=== PATIENT | female | born 1980 | race Caucasian/White ===

== ENCOUNTER → 2021-11-24 11:12 | Outpatient (CLI) | payer BC, SELFPAY ==
--- NOTE | ~2021-11-24 | US_ITS ---
EXAMINATION: US transvaginal DATE: 11/24/2021 11:39 INDICATION: Missing IUD strings TECHNIQUE: Multiple endovaginal sonographic images of the pelvis were obtained. COMPARISON: 07/29/2016 FINDINGS: The uterus measures 7.8 x 4.6 x 4.5 cm. The IUD appears to be in expected position. The end ometrial complex measures 5 mm. The right ovary measures 2.1 x 1.2 x 1.8 cm. The left ovary measures 2.3 x 1.3 x 1 cm. There is normal vascular flow in the ovaries. There is no free fluid in the pelvis. IMPRESSION: 1. IUD in expected position. Reviewed, dictated and finalized at location B. 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
== END ==
PROVIDERS: Visit Provider Nurse Practitioner
DX: T83.32XA Displacement of intrauterine contraceptive device, initial encounter (principal)
CPT/HCPCS: 76830

== ENCOUNTER → 2022-01-14 07:21 | Outpatient (CLI) | payer BC, SELFPAY ==
--- NOTE | ~2022-01-14 | MM_ITS ---
EXAMINATION: MM screening karma BI w marsha HISTORY: Screening TECHNIQUE: Craniocaudal and mediolateral oblique 3-D tomosynthesis images were obtained and synthetic 2-D images were generated. CAD analysis was submitted and interpreted. COMPARISON: No prior mammogram is available for comparison at this institution. BREAST PARENCHYMAL COMPOSITION: There are scattered areas of fibroglandular density. FINDINGS: There is no evidence of suspicious mass, calcification, or architectural distortion to sugg est malignancy in either breast. There has been no suspicious interval change. IMPRESSION: 1. No mammographic evidence of malignancy. 2. Recommend routine screening mammography in one year. BI-RADS Category 1: Negative Reviewed, dictated and finalized at location A.
== END ==
PROVIDERS: PCP Internal Medicine; Visit Provider Nurse Practitioner
DX: Z12.31 Encounter for screening mammogram for malignant neoplasm of breast (principal)
CPT/HCPCS: 77063; 77067

== ENCOUNTER 2023-08-26 10:06 | Outpatient (CLI) | payer BC, SELFPAY ==
[2023-08-26 12:55] LABS: Alanine Aminotransferase 23 U/L (6-35); Albumin Level 4.3 g/dL (3.5-5.1); Alkaline Phosphatase 75 U/L (38-126); Anion Gap 8 mmol/L (8-16); Aspartate Amino Transferase 43 U/L (14-36); Bilirubin,Total 0.7 mg/dL (0.2-1.3); Blood Urea Nitrogen 13 mg/dL (7-17); Calcium 9.2 mg/dL (8.4-10.2); Carbon Dioxide 25 mmol/L (22-30); Chloride 104 mmol/L (98-107); Cholesterol 231 mg/dL (0-200); Estimated Glomerular Filt Rate 60; Glucose 107 mg/dL (65-110); HDL Direct 40 mg/dL; Potassium 4.1 mmol/L (3.4-5.0); Sodium 137 mmol/L (137-145); Triglycerides 119 mg/dL (<150)
[2023-08-26 13:07] LABS: LDL Cholesterol Direct 145 mg/dL
[2023-08-26 13:31] LABS: Hemoglobin A1C 5.6 % (<5.7)
== END 2023-08-26 10:07 | disposition home or self-care (01) ==
LOC: ANHGOSHLAB 10:08
PROVIDERS: PCP Family Medicine; Visit Provider Family Medicine
DX: R73.03 Prediabetes (principal); E78.2 Mixed hyperlipidemia
CPT/HCPCS: 36415; 80053; 80061; 83036

== ENCOUNTER 2023-11-22 14:52 | Outpatient (CLI) | payer BC, SELFPAY ==
[2023-11-22 19:05] LABS: Alanine Aminotransferase 26 U/L (6-35); Albumin Level 4.5 g/dL (3.5-5.1); Alkaline Phosphatase 74 U/L (38-126); Aspartate Amino Transferase 59 U/L (14-36); Bilirubin,Total 0.5 mg/dL (0.2-1.3)
== END 2023-11-22 14:53 | disposition home or self-care (01) ==
LOC: ANHGOSHLAB 14:56
PROVIDERS: PCP Family Medicine; Visit Provider Family Medicine
DX: R79.89 Other specified abnormal findings of blood chemistry (principal)
CPT/HCPCS: 36415; 80076

== ENCOUNTER 2024-04-18 09:03 | Outpatient (CLI) | payer BC, SELFPAY ==
[2024-04-18 13:17] LABS: Alanine Aminotransferase 23 U/L (6-35); Albumin Level 4.4 g/dL (3.5-5.1); Alkaline Phosphatase 75 U/L (38-126); Anion Gap 9 mmol/L (4-12); Aspartate Amino Transferase 49 U/L (14-36); Bilirubin,Total 0.7 mg/dL (0.2-1.3); Blood Urea Nitrogen 12 mg/dL (7-17); Calcium 9.4 mg/dL (8.4-10.2); Carbon Dioxide 27 mmol/L (22-30); Chloride 100 mmol/L (98-107); Estimated Glomerular Filt Rate 54; Glucose 113 mg/dL (65-110); Potassium 4.1 mmol/L (3.4-5.0); Sodium 136 mmol/L (137-145)
[2024-04-18 14:52] LABS: Hepatitis B Surface Antigen Negative (Negative)
[2024-04-18 14:58] LABS: HAV RESULT Negative (Negative); Hepatitis B Core IgM Result Negative (Negative)
[2024-04-18 15:10] LABS: Hepatitis C Virus Antibody Negative (Negative)
== END 2024-04-18 09:04 | disposition home or self-care (01) ==
LOC: ANHGOSHLAB 09:05
PROVIDERS: PCP Family Medicine; Visit Provider Family Medicine
DX: R79.89 Other specified abnormal findings of blood chemistry (principal)
CPT/HCPCS: 36415; 80053; 80074; 82248

== ENCOUNTER 2024-10-27 08:51 | Outpatient (CLI) | payer BC, SELFPAY ==
--- NOTE | ~2024-10-27 | MM_ITS ---
EXAMINATION: MM screening karma BI w marsha HISTORY: Screening TECHNIQUE: Craniocaudal and mediolateral oblique 3-D tomosynthesis images were obtained and synthetic 2-D images were generated. CAD analysis was submitted and interpreted. COMPARISON: 01/14/2022 BREAST PARENCHYMAL COMPOSITION: Not dense: There are scattered areas of fibroglandular density. FINDINGS: The left breast is stable without evidence for malignancy. There is a developing asymmetry medially in the right breast on CC view, anterior third. IMPRESSION: 1. Developing right breast asymmetry. 2. Additional mammographic views and possible breast ultrasound are recommended. BI-RADS Category 0: Incomplete: Needs additional imaging evaluation. Reviewed, dictated and finalized at location B. 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 Developing right breast asymmetry. 2. Additional mammographic views and possible breast ultrasound are recommended . BI-RADS Category 0: Incomplete: Needs additional imaging evaluation.
== END 2024-10-27 08:52 | disposition home or self-care (01) ==
LOC: MICIMG 08:53
PROVIDERS: PCP Family Medicine; Visit Provider Obstetrics & Gynecology Gynecology
DX: Z12.31 Encounter for screening mammogram for malignant neoplasm of breast (principal); R92.8 Other abnormal and inconclusive findings on diagnostic imaging of breast
CPT/HCPCS: 77063; 77067

== ENCOUNTER 2024-11-07 00:23 | Day surgery (SDC) | payer BC, SELFPAY ==
[2024-10-23 10:19] VITALS: BMI 40.3
--- OUTSIDE RECORDS SUMMARY | 2024-11-07 00:26 | XMS_ITS | Clinical Summary ---
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 Name Role Phone Unavailable Primary Care Provider Unavailabl e Social History Tobacco Use Types Packs/Day Years Used Date Smoking Tobacco: Never Assessed Comments Unknown Sex and Gender Information Value Date Recorded Sex Assigned at Not on file Legal Sex Female 6:38 PM CDT Gender Identity Not on file Sexual Orientation Not on file Plan of Treatment Health Maintenance Due Date Last Done Comments Cervical Cancer Screening Pa p Smear (Age 30 to 64) Every 3 Years 1978 Colorectal Cancer Screening Colonoscopy (10 Years) 1978 Annual Physical 1981 Hepatitis C 1996 DTaP, Tdap and Td Vaccines ( 1 - Tdap) 1997 Hepatitis B Vaccines (1 of 3 - 19+ 3-dose series) 1997 Cervical Cancer Screening Pa p with HPV Testing (Age 30 to 64) Every 5 Years 2008 Cervical Cancer Screening with HPV 2008 Mammogram Screening 2018 COVID-19 Vaccine (2023-2 5 season) 2024 Influenza Adult (#1) 2024 Meningococcal B Vaccine Aged Out No l onger eligible based on patient's age to complete this topic Meningococcal Vaccine Aged Out No natali ollie eligible based on patient's age to complete this topic Pneumococcal Vaccine: Pediat rics (0 to 5 Years) and At-Risk Patients (6 to 64 Years) Aged Out No longer eligible b ased on patient's age to complete this topic RSV Immunizations Under 20 Months Aged Out No longer eligible based on patient's age to complete this topic
[2024-11-07 08:26] VITALS: BP 137/93; PULSE 71; RESP 18; TEMP 36.3; O2SAT 99; BMI 41.2
[2024-11-07] MEDS: LACTATED RINGERS 1,000 ML 150 ML IV CONT (08:32)
[2024-11-07 08:33] LABS: BEDSIDEPREGUCG Negative (Negative)
--- NOTE | 2024-11-07 09:07 | P.PNAN_ITS ---
Anes - Initial Pre Proc Eval Procedure: Operation Date: 11/07/24 09:30 Proposed Procedures p Screening Colonoscopy - Barak Wilson MD Date/Time: 11/07/24 09:07 Surgeon: Barak Wilson MD Pre Op Diagnosis: screening colon Patient Data Age: 44 Gender: F Height: 1.63 m Weight: 108.9 kg Last Vital Signs Temp 97.4 F L 11/07/24 08:26 Pulse 71 11/07/24 08:26 Resp 71 H 11/07/24 08:26 BP 137/93 H 11/07/24 08:26 Pulse Ox 99 11/07/24 08:26 O2 Del Method Room Air 11/07/24 08:26 Allergies Allergy/AdvReac Type Severity Reaction Status Date / Time Sulfa (Sulfonamide Allergy Unknown Unknown Verified 11/07/24 08:24 Antibiotics) Home Medications ?Medication ?Instructions ?Recorded ?Confirmed ?Type cetirizine 10 mg tablet (Zyrtec) 10 mg PO DAILY 05/11/23 11/07/24 History levonorgestrel (Mirena) 1 device intrauterine ONCE 05/11/23 11/07/24 History omeprazole magnesium 20 mg 20 mg PO DAILY 05/11/23 11/07/24 History tablet,delayed release (Prilosec OTC) cholecalciferol (vitamin D3) 50 50 mcg PO DAILY 05/23/24 11/07/24 History mcg (2,000 unit) capsule paroxetine HCl 12.5 mg 12.5 mg PO QAM #90 tabs 05/23/24 11/07/24 Rx tablet,extended release 24 hr Laboratory Tests 11/07/24 08:31 POC Urine HCG, Qual Negative (Negative) Patient hx anesthesia problems: none Family hx anesthesia problems: none Results Review: All pre-operative results and documents have been reviewed as part of the pre- operative evaluation. [facility] Family History Family History Mother Cervical cancer COPD (chronic obstructive pulmonary disease) Father Bladder cancer Social History Social History Social History: Caffeine- daily Smoking status: Never smoker Second hand tobacco smoke exposure: No Alcohol intake: current Drinks per week: 4 Alcohol use details: Socially on weekends Substance use: never Substance use type: does not use Do You Feel Safe in your Home?: Yes Lack of Transportation: No Lack of Food: Never True Current Housing: I Have Housing Concerned About Future Housing: No Difficulty Paying Gas/Electric Bills: No Difficulty Paying for Meds: No Currently Unemployed: No Education: Associate Degree Difficulty w/ Childcare or Family Care: No Living arrangements: with family Spiritual care concerns: No Anes - Eval Final PreProcedure Day of Procedure 11/07/24 09:07 Patient weight: obese Lungs: normal air movement Airway: Mallampati scale class III Neurological: alert and oriented Last oral intake: >/= 8 hours ASA classification: II Emergent: no Anesthetic plan: proceed Anesthesia type and monitoring: general GIVS and standard monitoring Results Review: All pre-operative results and documents have been reviewed as part of the pre- operative evaluation. BMI 41. Informed Consent: The patient's anesthetic plan and its attendant risks and benefits were discussed with the patient/family/POA. Questions were solicited and answers provided to the satisfaction of the patient/family/POA.
--- NOTE | 2024-11-07 09:31 | PM.HPGS ---
History of Present Illness History of Present Illness Consent: Risks, benefits, and alternatives have been discussed and questions answered. Patient agrees to proceed with procedure. Chief complaint: screening colon Narrative: Josie Travis is a 44 year old female here for first screening colonoscopy Review of Systems Review of Systems: All systems reviewed & are unremarkable except as noted in HPI and below PMFSH Past Medical History Medical History (Updated 11/07/24 @ 09:31 by Barak Wilson MD) Colon cancer screening Family History Family History Mother Cervical cancer COPD (chronic obstructive pulmonary disease) Father Bladder cancer Social History Social History Social History: Caffeine- daily Smoking status: Never smoker Second hand tobacco smoke exposure: No Alcohol intake: current Drinks per week: 4 Alcohol use details: Socially on weekends Substance use: never Substance use type: does not use Do You Feel Safe in your Home?: Yes Lack of Transportation: No Lack of Food: Never True Current Housing: I Have Housing Concerned About Future Housing: No Difficulty Paying Gas/Electric Bills: No Difficulty Paying for Meds: No Currently Unemployed: No Education: Associate Degree Difficulty w/ Childcare or Family Care: No Living arrangements: with family Spiritual care concerns: No Meds Home Medications and Allergies Home Medications ?Medication ?Instructions ?Recorded ?Confirmed ?Type cetirizine 10 mg tablet (Zyrtec) 10 mg PO DAILY 05/11/23 11/07/24 History levonorgestrel (Mirena) 1 device intrauterine ONCE 05/11/23 11/07/24 History omeprazole magnesium 20 mg 20 mg PO DAILY 05/11/23 11/07/24 History tablet,delayed release (Prilosec OTC) cholecalciferol (vitamin D3) 50 50 mcg PO DAILY 05/23/24 11/07/24 History mcg (2,000 unit) capsule paroxetine HCl 12.5 mg 12.5 mg PO QAM #90 tabs 05/23/24 11/07/24 Rx tablet,extended release 24 hr Allergies Allergy/AdvReac Type Severity Reaction Status Date / Time Sulfa (Sulfonamide Allergy Unknown Unknown Verified 11/07/24 08:24 Antibiotics) Vital Signs Vital Signs - 24 hr 11/07/24 08:26 Temperature 97.4 F L Pulse Rate 71 Respiratory Rate 71 H Blood Pressure 137/93 H Pulse Oximetry 99 Oxygen Delivery Room Air Exam Const: General: comfortable and no acute distress HENMT: Face/Nose/Sinus: Normal nares present Eyes: General: appearance normal, both eyes and all related structures Neck: Neck: no JVD Resp: Auscultation: clear to auscultation bilaterally Cardio: Rate: regular rate Rhythm: regular rhythm GI: Inspection: non-distended GI Palp: Yes Soft to palpation Skin: General skin exam: normal color Neuro: General: gait normal Speech: normal speech Extrem: General: normal to inspection Psych: Mental Status: mental status grossly normal Assessment and Plan Assessment and plan (1) Colon cancer screening: Code(s): Z12.11 - Encounter for screening for malignant neoplasm of colon Status: Acute Assessment and Plan: colonoscopy
[2024-11-07 09:54] VITALS: BP 126/79; PULSE 67; RESP 18; O2SAT 100
[2024-11-07 10:04] VITALS: BP 130/75; PULSE 65; RESP 16; O2SAT 100
[2024-11-07 10:14] VITALS: BP 146/87; PULSE 61; RESP 20; O2SAT 100
== END 2024-11-07 10:23 | disposition home or self-care (01) ==
PROVIDERS: Anesthesiology; PCP Family Medicine; Visit Provider Internal Medicine Gastroenterology
PROC: 0DJD8ZZ Inspection of Lower Intestinal Tract, Via Natural or Artificial Opening Endoscopic (ICD-10-PCS; CPT 45378; principal; 2024-11-07 09:30)
DX: Z12.11 Encounter for screening for malignant neoplasm of colon (principal); K64.8 Other hemorrhoids; E66.9 Obesity, unspecified; Z68.41 Body mass index [BMI] 40.0-44.9, adult; Z80.49 Family history of malignant neoplasm of other genital organs; Z80.52 Family history of malignant neoplasm of bladder
CPT/HCPCS: 45378; J2003; J2704; J7120

== ENCOUNTER 2024-11-23 08:19 | Outpatient (CLI) | payer BC, SELFPAY ==
--- NOTE | ~2024-11-23 | MMUS_ITS ---
EXAMINATION: MM diagnostic karma RT w marsha, US breast RT limited HISTORY: Developing right breast asymmetry detected on screening mammography dated 10/29/2024. TECHNIQUE: Additional 3-D tomosynthesis images of the right breast was performed and synthetic 2-D im ages were generated. CAD analysis was submitted and interpreted. High resolution limited right breast ultrasound was performed. COMPARISON: 10/27/2024 and dating back to 01/14/2022 BREAST PARENCHYMAL COMPOSITION:Not dense: There are scattered areas of fibroglandular density. FINDINGS: MAMMOGRAPHIC FINDINGS: Spot compression was performed which demonstrated this area to persist although not as apparent on 3- D spot compression, giving the initial impression of either fat necrosis versus a patch of dense evelin gn breast tissue. ULTRASOUND: Sonographic evaluation of the upper inner quadrant of the right breast was then performed which demon strated this area to be of increased echogenicity with internal cystic foci on static imaging suggest britany of fat necrosis. Cine view evaluation was also submitted, which demonstrated no suspicious findin gs. IMPRESSION: Findings at the 1:00 position of the right breast approximately 4 cm from the nipple demonstrating b enign imaging features (as detailed above) for which no tissue sampling is recommended. Return to yearly screening mammography (in October 2025) is recommended. BI-RADS Category 2: Benign findings Reviewed, dictated and finalized at location A. 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 Return to yearly screening mammography (in October 2025) is recommended. BI-RADS Category 2: Benign findings
== END 2024-11-23 08:20 | disposition home or self-care (01) ==
LOC: MICIMG 08:20
PROVIDERS: PCP Family Medicine; Visit Provider Obstetrics & Gynecology Gynecology
DX: R92.8 Other abnormal and inconclusive findings on diagnostic imaging of breast (principal)
CPT/HCPCS: 76642; 77061; 77065; G0279

== ENCOUNTER 2025-09-17 09:10 | Outpatient (CLI) | payer BC, SELFPAY ==
[2025-09-17 18:33] LABS: Alanine Aminotransferase 21 U/L (6-35); Albumin Level 4.3 g/dL (3.5-5.1); Alkaline Phosphatase 78 U/L (38-126); Anion Gap 6 mmol/L (4-12); Aspartate Amino Transferase 35 U/L (14-36); Bilirubin,Total 0.8 mg/dL (0.2-1.3); Blood Urea Nitrogen 17 mg/dL (7-17); Calcium 9.1 mg/dL (8.4-10.2); Carbon Dioxide 28 mmol/L (22-30); Chloride 102 mmol/L (98-107); Cholesterol 258 mg/dL (0-200); Estimated Glomerular Filt Rate 56; Glucose 112 mg/dL (65-110); HDL Direct 49 mg/dL; Hemoglobin A1C 5.6 % (<5.7); Potassium 4.2 mmol/L (3.4-5.0); Sodium 136 mmol/L (137-145); Total Protein 7.7 g/dL (6.3-8.2); Triglycerides 236 mg/dL (<150)
[2025-09-17 18:44] LABS: Hematocrit 41.6 % (37.0-47.0); Hemoglobin 13.7 g/dL (12.0-15.0); Immature Granulocyte Percent A 0.3 % (0-0.5); Lymphocytes Absolute Auto 2.70 K/mm3 (0.9-3.2); Mean Corpuscular HGB Conc 32.9 g/dl (32-36); Mean Corpuscular Hemoglobin 31.4 pg (26-34); Mean Corpuscular Volume 95.2 fl (80-100); Nucleated Red Blood Cells Absolute Auto 0.000 K/mm3 (0.0-0.012); Nucleated Red Blood Cells Perc 0.0 % (0.0-0.2); Platelet Count Result 407 k/mm3 (150-375); Red Blood Count 4.37 M/mm3 (4.2-5.4); White Blood Count 8.9 K/mm3 (4.5-10.0)
== END 2025-09-17 09:11 | disposition home or self-care (01) ==
LOC: ANHGOSHLAB 09:10
PROVIDERS: PCP Family Medicine; Visit Provider Family Medicine
DX: E78.2 Mixed hyperlipidemia (principal)
CPT/HCPCS: 36415; 80053; 80061; 83036; 85025